=== PATIENT | male | born 1980 | race Caucasian/White ===

== ENCOUNTER → 2018-10-26 | Outpatient (CLI) | payer SELFPAY ==
[~2018-10-26] MED LIST: ALBU0.632 IH; ARIP10TA2 PO; CEFU500T5 PO; DIABETIC MED; DOXY100C2 PO; HYDR-3062 PO; LAMICTAL; LAMO150T3 PO; LITH300C PO; NAPR-243 PO; ONDA-43 PO; PRD20T PO; PRD5T PO; TRM50T PO; [UNRECOGNIZED DRUG - OTHER]
--- NOTE | 2018-10-26 12:16 | Diagnostic Imaging Report ---
PROCEDURE: MRI lumbar spine. TECHNIQUE: Multiplanar, multisequence MRI of the lumbar spine was performed without contrast. INDICATION: Low back pain, bilateral leg pain. COMPARISON: Study compared 08/08/2013. FINDINGS: Previously, there was a right paramedian focal disc protrusion resulting in right-sided lateral recess stenosis at the L5 level. This has resolved. Lumbar spinal canal showed no significant narrowing on followup. Endplate osteophytes and annular disc bulges at L3-L4 and L4-L5 result in a borderline mild degree of foraminal narrowing but no devan compression of the exiting or descending nerve roots. No significant effacement of the thecal sac. Lumbar statures are normal. The alignment anatomic. The marrow signal intensity normal. IMPRESSION: 1. Resolution of previous right paramedian focal disc protrusion and resolution of its previous lateral recess encroachment. 2. Mild lower lumbar foraminal stenoses chronic. 3. No substantial canal narrowing. No acute pathology. No adverse development. Dictated by: Dictated on workstation # [id number]
== END ==
LOC: RAD 09:07
PROVIDERS: ATTEND Nurse Practitioner Community Health
DX: M48.061 Spinal stenosis, lumbar region without neurogenic claudication (principal)
CPT/HCPCS: 72148

== ENCOUNTER 2020-02-10 10:21 | Emergency (ER) | payer SELFPAY ==
[~2020-02-10] VITALS: Ht 190.5 cm; Wt 147.4 kg
--- NOTE | 2020-02-10 10:43 | ED GI ---
General Chief Complaint: Abdominal/GI Problems Stated Complaint: VOMITING BLOOD Source of Information: Patient Exam Limitations: No Limitations History of Present Illness Date Seen by Provider: Feb 10, 2020 Time Seen by Provider: 10:20 Initial Comments The patient presents to ER by private conveyance with chief complaint that last night he had a fall which is not unusual for him landing on his left shoulder. He has some achiness in his left shoulder. What concerned him however as it he gets dizzy afterwards and vomited twice. He is not having any nausea since then. He knows some blood in the vomit. He does not have a history of GERD, ulcers, esophageal varices, hepatitis. He does not drink alcohol. He has been able to eat and drink as well as chew tobacco since then. He called his primary care provider, Tima Ugalde this morning and he recommended he come out to the ER to be checked out. He has an appointment at noon with his primary clinic. He's having no shortness of breath or chest pain. Allergies and Home Medications Allergies Coded Allergies: morphine (Verified Allergy, Severe, 09/18/11) pt states "has opposite reaction, gets violent when on medication " Sulfa (Sulfonamide Antibiotics) (Verified Allergy, Unknown, 09/18/11) erythromycin estolate (Verified Allergy, Unknown, 09/18/11) soy (Verified Allergy, Unknown, 09/18/11) Home Medications Ondansetron 8 Mg Tab, 8 MG PO Q4H Prescribed by: MICHEL ANGEL on 11/11/14 1725 Tramadol Hcl 50 Mg Tab, 100 MG PO BID PRN Prescribed by: CEE GLASGOW on 02/05/12 1838 Patient Home Medication List Home Medication List Reviewed: Yes Review of Systems Review of Systems Constitutional: No chills, No malaise EENTM: No Blurred Vision, No Double Vision Respiratory: Denies Cough, Denies Shortness of Air Cardiovascular: Denies Chest Pain, Denies Lightheadedness Gastrointestinal: Denies Abdomen Distended, Denies Abdominal Pain, Denies Constipated, Denies Diarrhea, Denies Nausea, Denies Poor Fluid Intake; Vomiting Genitourinary: Denies Burning, Denies Discharge Musculoskeletal: see HPI; No back pain; joint pain All Other Systems Reviewed Negative Unless Noted: Yes Past Dgchiym-Elwgjx-Xzbnwz Hx Patient Social History Alcohol Use: Denies Use Recreational Drug Use: No Smoking Status: Never a Smoker Recent Foreign Travel: No Contact w/Someone Who Travel: No Seasonal Allergies Seasonal Allergies: No Past Medical History Orthopedic Pneumonia Reproductive Disorders: No Diabetes, Non-Insulin dep Stomach ADD/ADHD, Bipolar Physical Exam Vital Signs Vital Signs - First Documented 02/10/20 10:28 Pulse 98 Resp 14 B/P (MAP) 147/108 (121) Pulse Ox 94 O2 Delivery Room Air Capillary Refill : Height/Weight/BMI Height: 6'2" Weight: 215lbs. oz. 97.476909wr; BMI Method:Stated General Appearance: WD/WN, no apparent distress HEENT: PERRL/EOMI, normal ENT inspection, TMs normal, pharynx normal, other (atraumatic head) Neck: full range of motion, supple, normal inspection Respiratory: no respiratory distress, no accessory muscle use Cardiovascular: normal peripheral pulses, regular rate, rhythm Gastrointestinal: normal bowel sounds, non tender, soft Progress/Results/Core Measures Results/Orders Lab Results Laboratory Tests Test 02/10/20 10:52 Range/Units White Blood Count 11.1 H 4.3-11.0 10^3/uL Red Blood Count 5.45 4.35-5.85 10^6/uL Hemoglobin 14.2 13.3-17.7 G/DL Hematocrit 43 40-54 % Mean Corpuscular Volume 78 L 80-99 FL Mean Corpuscular Hemoglobin 26 25-34 PG Mean Corpuscular Hemoglobin Concent 33 32-36 G/DL Red Cell Distribution Width 15.0 H 10.0-14.5 % Platelet Count 380 130-400 10^3/uL Mean Platelet Volume 11.5 H 7.4-10.4 FL Neutrophils (%) (Auto) 69 42-75 % Lymphocytes (%) (Auto) 23 12-44 % Monocytes (%) (Auto) 8 0-12 % Eosinophils (%) (Auto) 1 0-10 % Basophils (%) (Auto) 0 0-10 % Neutrophils # (Auto) 7.6 1.8-7.8 X 10^3 Lymphocytes # (Auto) 2.5 1.0-4.0 X 10^3 Monocytes # (Auto) 0.9 0.0-1.0 X 10^3 Eosinophils # (Auto) 0.1 0.0-0.3 10^3/uL Basophils # (Auto) 0.0 0.0-0.1 10^3/uL My Orders Orders - SEFERINO L[facility]ON Cbc With Automated Diff (02/10/20 10:33) Comprehensive Metabolic Panel (02/10/20 10:33) Vital Signs/I&O 02/10/20 10:28 Pulse 98 Resp 14 B/P (MAP) 147/108 (121) Pulse Ox 94 O2 Delivery Room Air Progress Progress Note : Time: 10:43 Progress Note Aseptic vital signs, benign abdominal exam and no nausea at this time. Plan to check a CBC and if he's had a normal hemoglobin then we can have him follow-up with Dr. Power outpatient for endoscopy. Departure Impression Primary Impression: Hematemesis Qualified Codes: K92.0 - Hematemesis Disposition: 01 HOME, SELF-CARE Condition: Stable Departure-Patient Inst. Decision time for Depature: 11:10 Referrals: [facility] [place] (PCP) Primary Care Physician MARIA T UGALDE (Family) Primary Care Physician DERIK POWER MD Add. Discharge Instructions: Keep your follow-up appointment today. Call Dr. Power, general surgeon and request follow-up in the next couple weeks. If you have nausea you may take one tablet of ondansetron every 6 hours as necessary. If he had continual, intractable nausea or severe abdominal pain, fever or other worrisome symptoms then please return to the ER. All discharge instructions reviewed with patient and/or family. Voiced understanding. Copy Copies To 1: DERIK POWER MD, TITUS J Feb 10, 2020 10:43
[2020-02-10 11:05] LABS: BASOPHILS % (AUTO) 0 % (0-10); EOSINOPHILS # (AUTO) 0.1 10^3/uL (0.0-0.3); EOSINOPHILS % (AUTO) 1 % (0-10); HEMATOCRIT 43 % (40-54); HEMOGLOBIN 14.2 G/DL (13.3-17.7); LYMPHOCYTES # (AUTO) 2.5 X 10^3 (1.0-4.0); LYMPHOCYTES % (AUTO) 23 % (12-44); MEAN CORPUSCULAR HEMOGLOBIN 26 PG (25-34); MEAN CORPUSCULAR HGB CONC 33 G/DL (32-36); MEAN CORPUSCULAR VOLUME 78 FL (80-99); MEAN PLATELET VOLUME 11.5 FL (7.4-10.4); MONOCYTES # (AUTO) 0.9 X 10^3 (0.0-1.0); MONOCYTES % (AUTO) 8 % (0-12); NEUTROPHILS # (AUTO) 7.6 X 10^3 (1.8-7.8); NEUTROPHILS % (AUTO) 69 % (42-75); PLATELET COUNT 380 10^3/uL (130-400); WHITE BLOOD COUNT 11.1 10^3/uL (4.3-11.0)
[2020-02-10 11:14] LABS: ALBUMIN 4.3 GM/DL (3.2-4.5); CHLORIDE 107 MMOL/L (98-107)
[2020-02-10 11:15] LABS: POTASSIUM 3.6 MMOL/L (3.6-5.0); SODIUM 141 MMOL/L (135-145)
[2020-02-10 11:16] LABS: CALCIUM 9.6 MG/DL (8.5-10.1)
[2020-02-10] MEDS ORDERED: ONDA4TAB11 PO (11:16)
[2020-02-10 11:17] LABS: GLUCOSE 115 MG/DL (70-105)
[2020-02-10 11:18] LABS: CARBON DIOXIDE 21 MMOL/L (21-32)
[2020-02-10 11:19] VITALS: BP 147/108
[2020-02-10 11:19] LABS: BILIRUBIN,TOTAL 0.4 MG/DL (0.1-1.0)
[2020-02-10 11:20] LABS: ALKALINE PHOSPHATASE 93 U/L (40-136); CREATININE SERUM 1.29 MG/DL (0.60-1.30); GFR ESTIMATED > 60
[2020-02-10 11:21] LABS: BUN/CREATININE RATIO 10
[2020-02-10 11:23] LABS: ALANINE AMINOTRANSFERASE 35 U/L (0-55)
== END 2020-02-10 11:23 | disposition home or self-care (01) ==
LOC: EDUNIT# 10:21 → ER 10:22
DX: K92.0 Hematemesis (principal); M25.512 Pain in left shoulder; F17.220 Nicotine dependence, chewing tobacco, uncomplicated; Z88.5 Allergy status to narcotic agent; Z88.2 Allergy status to sulfonamides; Z88.1 Allergy status to other antibiotic agents; W19.XXXA Unspecified fall, initial encounter
CPT/HCPCS: 36415; 80053; 85025